=== PATIENT | male | born 1965 | race Caucasian/White ===

== ENCOUNTER 2020-06-13 11:42 | Emergency (ER) | payer OTHER ==
[~2020-06-13] VITALS: Ht 172.7 cm; Wt 104.3 kg
[2020-06-13] MEDS ORDERED: ELIQUIS5 M2 PO (11:57)
[2020-06-13] MEDS ORDERED: LISI20 PO (11:57)
[2020-06-13] MEDS ORDERED: METO50ER PO (12:59)
[2020-06-13] MEDS ORDERED: LISI10 PO (13:24)
[2020-06-13] MEDS ORDERED: Toprol Xl50 MG PO (13:24)
[2020-06-13] MEDS ORDERED: ELIQUIS5 MG PO (13:24)
== END 2020-06-13 13:55 | disposition home or self-care (01) ==
LOC: ER 11:42
DX: I48.91 Unspecified atrial fibrillation (principal); I10 Essential (primary) hypertension; Z45.02 Encounter for adjustment and management of automatic implantable cardiac defibrillator; Z79.01 Long term (current) use of anticoagulants; Z79.899 Other long term (current) drug therapy
CPT/HCPCS: 92960; 93005; 93010; 96361-59; 96374-59; 99284-25; J1885; J2704; J7030